=== PATIENT | female | born 1945 | race Caucasian/White ===

== ENCOUNTER → 2023-10-03 06:51 | Outpatient (REF) | payer MEDICARE, SELFPAY | LOC: RAD 06:51 | PROVIDERS: ATTENDING PHYSICIAN Family Medicine | DX: K76.89 Other specified diseases of liver (principal) | CPT/HCPCS: 76705 ==

== ENCOUNTER → 2024-07-22 10:35 | Outpatient (REF) | payer MEDICARE, SELFPAY | LOC: HWRAD 10:35 | PROVIDERS: ATTENDING PHYSICIAN Family Medicine | DX: M81.0 Age-related osteoporosis without current pathological fracture (principal) | CPT/HCPCS: 77080 ==